=== PATIENT | male | born 1970 | race Caucasian/White ===

== ENCOUNTER 2021-09-19 21:46 | Emergency (ER) | payer OTHER ==
[2021-09-19 22:07] LABS: #Basophils 0.1 thou/uL (0.0-0.2); #Eosinphils 0.2 thou/uL (0.0-0.7); #Lymphocytes 2.8 thou/uL (1.20-3.40); #Monocytes 0.8 thou/uL (0.11-0.59); #Neutrophils 4.6 thou/uL (1.40-6.50); %Basophils 0.9 % (0.0-1.0); %Monocytes 9.7 % (0.0-10.0); %Neutrophils 54.4 % (42.0-75.0); Hemoglobin 16.7 g/dL (14.0-18.0); Mean Corpuscular HGB CONC 35.4 g/dL (32.0-36.0); Mean Corpuscular Hemoglobin 36.4 pg (27.0-31.0); Mean Platelet Volume 8.1 fL (7.4-10.4); Platelet Count 276 thou/uL (130-400); RBC Distribution Width 12.1 % (11.5-14.5); Red Blood Cell (RBC) Count 4.58 mill/uL (4.70-6.10); White Blood Cell (WBC) Count 8.5 thou/uL (4.8-10.8)
[2021-09-19 22:28] LABS: ALT (SGPT) 60 U/L (8-55); AST (SGOT) 44 U/L (5-34); Albumin 4.6 g/dL (3.5-5.0); Alkaline Phosphatase 99 U/L (40-110); Anion Gap 18 mmol/L (10-20); BUN (Urea Nitrogen) 11 mg/dL (8.9-20.6); Bilirubin, Total 0.8 mg/dL (0.2-1.2); Calc. Creatinine Clearance 0 mL/min (70-130); Calcium 9.6 mg/dL (7.8-10.44); Carbon Dioxide 19 mmol/L (22-29); Chloride 101 mmol/L (98-107); Globulin 2.8 g/dL (2.4-3.5); Glucose 97 mg/dL (70-105); Lipase 31 U/L (8-78); Potassium 3.7 mmol/L (3.5-5.1); Protein, Total 7.4 g/dL (6.0-8.3); Sodium 134 mmol/L (136-145)
[2021-09-19] MEDS ORDERED: Morphine 4 MG/ML VIAL ONE (23:34)
[2021-09-19] MEDS ORDERED: Ketorolac Tromethamine 30 MG/ML VIAL ONE (23:34)
[2021-09-19] MEDS ORDERED: Ibuprofen 800 MG TAB ONE (23:42)
== END 2021-09-20 00:56 | disposition home or self-care (01) ==
LOC: ERS 21:46
DX: S52.502A Unspecified fracture of the lower end of left radius, initial encounter for closed fracture (principal); S62.002A Unspecified fracture of navicular [scaphoid] bone of left wrist, initial encounter for closed fracture; S93.402A Sprain of unspecified ligament of left ankle, initial encounter; Z87.19 Personal history of other diseases of the digestive system; I10 Essential (primary) hypertension; F17.210 Nicotine dependence, cigarettes, uncomplicated; V24.4XXA Motorcycle driver injured in collision with heavy transport vehicle or bus in traffic accident, initial encounter
CPT/HCPCS: 29125; 70450; 71045; 72125; 80053; 83605; 83690; 85025; 93005; G0390; J1885; J2270